=== PATIENT | male | born 1955 | race Caucasian/White ===

== ENCOUNTER 2017-04-30 04:46 | Emergency (ER) | payer BC ==
[~2017-04-30] VITALS: Ht 175.3 cm; Wt 84.8 kg
[~2017-04-30 04:46] MED LIST: CIPR500T PO
[2017-04-30] MEDS ORDERED: IV NORMAL SALINE 1,000ML 1,000 ML IV SCH (05:17)
--- NOTE | 2017-04-30 05:17 | ED.ADGEN ---
Past History Past Medical History: CAD, Diabetes Past Surgical History: Coronary Bypass Surgery Alcohol Use: None Drug Use: None Adult General Chief Complaint Chief Complaint Hematuria and abdominal pain HPI HPI Patient is a C1 year old and male who presents with abdominal pain and hematuria. He states his been going on for about 2 days and is constant in the right side length that radiates into his pelvic area. Currently he states the pain is a 9 out 10 and nothing makes it better or worse. He states that he couldn't sleep tonight and that's why came to the emergency department. He denies any nausea vomiting or diarrhea. States he also has been noticing brown colored urine the same time. He states he tried to have a bowel movement last night but couldn't. He drove himself here. He has had history of kidney stones within several years ago they doesn't really remember the pain or discomfort at that time. He also said triple bypass surgery. Currently does not have a primary care physician. He denies any testicular pain. Review of Systems Review of Systems Constitutional: Denies fever or chills [] Eyes: Denies change in visual acuity, redness, or eye pain [] HENT: Denies nasal congestion or sore throat [] Respiratory: Denies cough or shortness of breath [] Cardiovascular: No additional information not addressed in HPI [] GI: Denies nausea, vomiting, bloody stools or diarrhea, positive for abdominal pain and right flank pain., : Denies dysuria, positive for hematuria [] Musculoskeletal: Denies back pain or joint pain [] Integument: Denies rash or skin lesions [] Neurologic: Denies headache, focal weakness or sensory changes [] Endocrine: Denies polyuria or polydipsia [] Current Medications Current Medications Current Medications Medications (Trade) Dose Ordered Sig/Raj Start Time Stop Time Status Last Admin Dose Admin Ondansetron HCl (Zofran) 4 mg 1X ONCE 04/30/17 06:00 04/30/17 06:01 UNV Sodium Chloride 1,000 ml @ 1,000 mls/hr Q1H 04/30/17 05:17 04/30/17 06:16 UNV 04/30/17 05:17 1,000 MLS/HR Allergies Allergies Allergies Coded Allergies Type Severity Reaction Last Updated Verified codeine Allergy Unknown 11/21/16 Yes Physical Exam Physical Exam Constitutional: Well developed, well nourished, no acute distress, non-toxic appearance. [] HENT: Normocephalic, atraumatic, bilateral external ears normal, oropharynx moist, no oral exudates, nose normal. [] Eyes: PERRLA, EOMI, conjunctiva normal, no discharge. [] Neck: Normal range of motion, no tenderness, supple, no stridor. [] Cardiovascular:Heart rate regular rhythm, no murmur [] Lungs & Thorax: Bilateral breath sounds clear to auscultation [] Abdomen: Bowel sounds normal, soft, tender palpation right and left lower quadrant, no rebound or guarding, tender palpation the right flank., no masses, no pulsatile masses. [] Skin: Warm, dry, no erythema, no rash. [] Back: No tenderness, no CVA tenderness. [] Extremities: No tenderness, no cyanosis, no clubbing, ROM intact, no edema. [] Neurologic: Alert and oriented X 3, normal motor function, normal sensory function, no focal deficits noted. [] Psychologic: Affect normal, judgement normal, mood normal. [] Current Patient Data Vital Signs Vital Signs Date Time Temp Pulse Resp B/P (MAP) Pulse Ox O2 Delivery O2 Flow Rate FiO2 04/30/17 04:50 97.7 74 20 98 Room Air Lab Results Laboratory Tests Test 04/30/17 05:00 04/30/17 05:10 Urine Collection Type Unknown Urine Color Red Urine Clarity Hazy Urine pH 7.0 Urine Specific [place] 1.020 Urine Protein 30 mg/dl (NEG-TRACE) Urine Glucose (UA) Neg mg/dL (NEG) Urine Ketones (Stick) Neg mg/dL (NEG) Urine Blood Large (NEG) Urine Nitrite Neg (NEG) Urine Bilirubin Neg (NEG) Urine Urobilinogen Dipstick 0.2 mg/dL (0.2 mg/dL) Urine Leukocyte Esterase Neg (NEG) Urine RBC >40 /HPF (0-2) Urine WBC Occ /HPF (0-4) Urine Squamous Epithelial Cells None /LPF Urine Bacteria Few /HPF (0-FEW) White Blood Count 12.6 x10^3/uL (4.0-11.0) H Red Blood Count 5.28 x10^6/uL (4.30-5.70) Hemoglobin 15.2 g/dL (13.0-17.5) Hematocrit 45.7 % (39.0-53.0) Mean Corpuscular Volume 87 fL (79-100) Mean Corpuscular Hemoglobin 29 pg (25-35) Mean Corpuscular Hemoglobin Concent 33 g/dL (31-37) Red Cell Distribution Width 15.7 % (11.5-14.5) H Platelet Count 156 x10^3/uL (140-400) Neutrophils (%) (Auto) 72 % (31-73) Lymphocytes (%) (Auto) 17 % (24-48) L Monocytes (%) (Auto) 8 % (0-9) Eosinophils (%) (Auto) 2 % (0-3) Basophils (%) (Auto) 1 % (0-3) Neutrophils # (Auto) 9.0 x10^3uL (1.8-7.7) H Lymphocytes # (Auto) 2.2 x10^3/uL (1.0-4.8) Monocytes # (Auto) 1.0 x10^3/uL (0.0-1.1) Eosinophils # (Auto) 0.2 x10^3/uL (0.0-0.7) Basophils # (Auto) 0.1 x10^3/uL (0.0-0.2) Sodium Level 143 mmol/L (136-145) Potassium Level 4.2 mmol/L (3.5-5.1) Chloride Level 106 mmol/L (98-107) Carbon Dioxide Level 30 mmol/L (21-32) Anion Gap 7 (6-14) Blood Urea Nitrogen 18 mg/dL (8-26) Creatinine 1.5 mg/dL (0.7-1.3) H Estimated GFR (Cockcroft-Gault) 47.6 Glucose Level 125 mg/dL (70-99) H Calcium Level 9.3 mg/dL (8.5-10.1) EKG EKG [] Radiology/Procedures Radiology/Procedures [] Course & Med Decision Making Course & Med Decision Making Pertinent Labs and Imaging studies reviewed. (See chart for details) She presents with what sounds like likely kidney stone. He's had hematuria for 2 days his been constant pain in the pain is in the right flank and goes into his right and left lower quadrants. States nothing makes the pain better or worse. He's had a history of a kidney stone many years ago. On my reading the CT scan shows a likely stone on the right that could be causing the symptoms. Awaiting on final CT scan results. The patient being checked out to , for final disposition. This is stone he likely needs to be discharged with [place] , Flomax, and urology follow-up and a urinary strainer. We also talked about giving him a shot of Toradol. He is currently getting IV fluids and Zofran. She is in stable condition at this time being checked out to . Final Impression Final Impression Abdominal pain Problems: Dragon Disclaimer Dragon Disclaimer This electronic medical record was generated, in whole or in part, using a voice recognition dictation system. МАРИНА ANAYA MD Apr 30, 2017 05:17
[2017-04-30 05:26] LABS: BASO # 0.1 x10^3/uL (0.0-0.2); BASO % 1 % (0-3); EOS # 0.2 x10^3/uL (0.0-0.7); EOS % 2 % (0-3); HEMATOCRIT 45.7 % (39.0-53.0); HEMOGLOBIN 15.2 g/dL (13.0-17.5); LYMPH # 2.2 x10^3/uL (1.0-4.8); LYMPH % 17 % (24-48); MEAN CORPUSCULAR HEMOGLOBIN 29 pg (25-35); MEAN CORPUSCULAR HGB CONC 33 g/dL (31-37); MEAN CORPUSCULAR VOLUME 87 fL (79-100); MONO % 8 % (0-9); NEUT % 72 % (31-73); PLATELET COUNT 156 x10^3/uL (140-400); RED BLOOD COUNT 5.28 x10^6/uL (4.30-5.70); RED CELL DISTRIBUTION WIDTH 15.7 % (11.5-14.5); WHITE BLOOD COUNT 12.6 x10^3/uL (4.0-11.0)
[2017-04-30 05:30] LABS: BACTERIA,URINE FEW /HPF (0-FEW); BILIRUBIN,URINE NEG (NEG); CLARITY,URINE HAZY; COLOR,URINE RED; GLUCOSE,URINE NEG (NEG); NITRITE,URINE NEG (NEG); RBC,URINE >40 /HPF (0-2); UROBILINOGEN,URINE 0.2 mg/dL (0.2 mg/dL); WBC,URINE OCC /HPF (0-4)
[2017-04-30 05:30] LABS: CALCIUM 9.3 mg/dL (8.5-10.1); CREATININE 1.5 mg/dL (0.7-1.3); GFR 47.6; POTASSIUM 4.2 mmol/L (3.5-5.1)
[2017-04-30] MEDS ORDERED: ONDANSETRON PF 4 MG/2 ML VIAL. IV ONE (06:00)
[2017-04-30 06:16] LABS: DIRECT BILIRUBIN 0.1 mg/dL (0.0-0.2); TOTAL BILIRUBIN 0.5 mg/dL (0.2-1.0); TOTAL PROTEIN 7.4 g/dL (6.4-8.2)
--- NOTE | 2017-04-30 06:29 | RAD ---
EXAM: CT ABDOMEN/PELVIS WITHOUT CONTRAST. HISTORY: Right flank pain and hematuria. TECHNIQUE: Computed tomography of the abdomen and pelvis was performed without intravenous contrast. COMPARISON: None. FINDINGS: Lung windows through the visualized portions of the bases reveal mild atelectasis and median sternotomy changes. Bone windows reveal no suspicious lesions. There is mild aortoiliac ectasia. Maximum aortic diameter is 2.7 cm. 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 There are no pathologically enlarged lymph nodes. The appendix is not inflamed. There is no obstruction. The liver, gallbladder, pancreas and spleen are unremarkable without contrast. A low-density nodule in the left adrenal gland is consistent with a benign adenoma and measures 2.2 x 2.0 cm. A right proximal ureteral calculus measures 5 mm. There is mild right pelviectasis with perinephric stranding. Another right distal ureteral calculus measures 3 mm. There is urothelial thickening in the bladder and throughout the left ureter and collecting system. Additional renal calculi measure up to 3 mm bilaterally. The prostate is moderately enlarged at 4.5 cm. IMPRESSION: 1. 2 right ureteral calculi measure 5 mm just distal to the ureteropelvic junction and 3 mm just proximal to the ureterovesical junction. 2. Additional bilateral renal calculi measuring up to 3 mm. 3. Urothelial thickening throughout the bladder and left collecting system. Correlate with urinalysis. 4. 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 *One or more of the following individualized dose reduction techniques were utilized for this examination: 1. Automated exposure control. 2. Adjustment of the mA and/or kV according to patient size. 3. Use of iterative reconstruction technique. Electronically signed by: Rickey Metzger MD (04/30/2017 6:25 AM)
[2017-04-30] MEDS: HYDROmorphone PF 1 MG/ML DISP.SYRIN IV/SQ PRN ×2 (06:30→06:58)
--- NOTE | 2017-04-30 07:08 | PHYS DOC ---
General Chief Complaint: FLANK PAIN Stated Complaint: BLOOD IN URINE X 2 DAYS Time Seen by MD: 05:57 Source: patient, RN/MD, old records Exam Limitations: no limitations Problems: History of Present Illness Initial Comments Patient signed out to me by Dr. Anaya 6 AM shift change. See his documentation for history and other data not contained herein. Patient seen and examined, chart reviewed. 61-year-old male history coronary artery disease and diabetes with several days worsening right flank pain and hematuria this morning. Nauseous on arrival resolved with Zofran, patient drove himself so no narcotic meds and then administered yet. Urinalysis is positive for blood no products of infection creatinine mildly bumped at 1.5 with BUN 18 otherwise reassuring labs. At this point patient states he will get a cab home as his pain is severe and he is requesting stronger pain medications. His vital signs remained stable aside from his blood pressure which was elevated on arrival as patient has not taken his home blood pressure meds and refuses them in the ED. Pressure initially 202/106 improved to 174/104 without treatment. Getting his pain under control should further aid blood pressure control. He continues without chest pain shortness of breath headache focal neuro changes, asymptomatic with his elevated pressures. Allergies: Coded Allergies: codeine (Verified Allergy, Unknown, 11/21/16) Past Medical History Medical History: diabetes, heart disease, kidney stones Surgical History: coronary bypass surgery Social History Smoker: cigarettes Alcohol: none Drugs: none Physical Exam General Appearance: mild distress Ear, Nose, Throat: normal ENT inspection Neck: non-tender, supple Respiratory: normal breath sounds, no respiratory distress Cardiovascular: normal peripheral pulses, regular rate, rhythm Gastrointestinal: non tender, soft Back: no CVA tenderness, no vertebral tenderness Extremities: non-tender, normal inspection 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 PHYSICIAN: МАРИНА ANAYA MD REASON: hematuria PROCEDURE: CT ABDOMEN PELVIS WO CONTRAST EXAM: CT ABDOMEN/PELVIS WITHOUT CONTRAST. HISTORY: Right flank pain and hematuria. TECHNIQUE: Computed tomography of the abdomen and pelvis was performed without intravenous contrast. COMPARISON: None. FINDINGS: Lung windows through the visualized portions of the bases reveal mild atelectasis and median sternotomy changes. Bone windows reveal no suspicious lesions. There is mild aortoiliac ectasia. Maximum aortic diameter is 2.7 cm. 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 There are no pathologically enlarged lymph nodes. The appendix is not inflamed. There is no obstruction. The liver, gallbladder, pancreas and spleen are unremarkable without contrast. A low-density nodule in the left adrenal gland is consistent with a benign adenoma and measures 2.2 x 2.0 cm. A right proximal ureteral calculus measures 5 mm. There is mild right pelviectasis with perinephric stranding. Another right distal ureteral calculus measures 3 mm. There is urothelial thickening in the bladder and throughout the left ureter and collecting system. Additional renal calculi measure up to 3 mm bilaterally. The prostate is moderately enlarged at 4.5 cm. IMPRESSION: 1. 2 right ureteral calculi measure 5 mm just distal to the ureteropelvic junction and 3 mm just proximal to the ureterovesical junction. 2. Additional bilateral renal calculi measuring up to 3 mm. 3. Urothelial thickening throughout the bladder and left collecting system. Correlate with urinalysis. 4. 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 *One or more of the following individualized dose reduction techniques were utilized for this examination: 1. Automated exposure control. 2. Adjustment of the mA and/or kV according to patient size. 3. Use of iterative reconstruction technique. Electronically signed by: Rickey Metzger MD (04/30/2017 6:25 AM) DICTATED AND SIGNED BY: VITO METZGER MD DATE: 04/30/17 0607 CC: МАРИНА ANAYA MD; PCP,NO; BETO WRIGHT DO ~ Pertinent labs urinalysis is grossly positive for blood third no products of infection. BUN 18 creatinine 1.5, white blood cells 12.6 Patient reports dramatic symptom control with Dilaudid IV. I discussed findings with him and stressed the need for urologic evaluation. The 5 mm stone is borderline passable at home for size and I offered patient inpatient admission to with inpatient urologic evaluation. Patient refuses requesting conservative treatment at home. As there is no evidence of infection with his right-sided hydronephrosis this is not unreasonable. I discussed prophylactic antibiotics to prevent infection as well as the need for outpatient urologic evaluation for his kidney stones and likely cystoscopy to rule out tumor. Stressed the need to follow-up with his primary care physician will potentially need further vascular studies or specialty consultation for the femoral aneurysm. I discussed rechecking his kidney function next week with his primary care doctor as well as smoking cessation. I advised him to take his blood pressure meds upon arrival home and to call the ED or return if his blood pressure did not normalize. He expressed agreement and understanding of all these things and said he is without medical insurance gout he will follow-up with urology as an outpatient. I advised him about [facility] and [facility] as possible resources. Departure Time of Disposition: 06:56 Disposition: 01 HOME, SELF-CARE Diagnosis: 2 R ureterolith with obstruction, femoral artery a Patient Instructions: Hypertension, Kidney Stones, [id number], Smoking Cessation Additional Instructions: 1. 2 right ureter kidney stones (5mm, 3mm) with obstruction 2. small right femoral artery aneurysm 3. urothelial thickening 4. bilateral renal stones 5. uncontrolled hypertension 6. acute renal insufficiency Rest today and no driving or operating machinery while under the influence of narcotic pain medications. Aggressive hydration as well as [id number] stool softeners to prevent constipation. Continue home medications. Prescriptions: [place] 10 mg #40, Zofran, cephalexin Stop smoking, seek medical assistance if necessary. You will need to follow up with a urologist regarding the kidney stones as well as the urothelial thickening. As discussed urothelial thickening requires further evaluation by a urologist for possible tumor. Also as discussed we'll send you home with antibiotics to prevent complication of urinary infection with obstruction. Per your request ED staff will provide you information regarding the [facility] and [facility]. Must follow-up with urologist for further evaluation. You may choose to see Dr. Jorge Alberto Hermosillo with the [facility] urology. His office is at [address] [place] [address] [address], [place] [address]. [phone] call today to schedule next available appointment. Follow up with her primary care physician for further evaluation and management of the other medical problems. Return to ED with new or changing symptoms. BETO WRIGHT DO Apr 30, 2017 07:07
[2017-04-30] MEDS ORDERED: CEPH500T PO (07:11)
[2017-04-30] MEDS ORDERED: ONDA4TAB10 SL (07:11)
[2017-04-30] MEDS ORDERED: HYDR-963 PO (07:11)
[2017-04-30] MEDS ORDERED: TAMS0.4C97 PO (07:11)
[2017-04-30 07:15] VITALS: BP 184/100
== END 2017-04-30 07:30 | disposition home or self-care (01) ==
LOC: ER 04:46
DX: N20.1 Calculus of ureter (principal); N36.8 Other specified disorders of urethra; I72.4 Aneurysm of artery of lower extremity; I25.810 Atherosclerosis of coronary artery bypass graft(s) without angina pectoris; E11.9 Type 2 diabetes mellitus without complications; F17.210 Nicotine dependence, cigarettes, uncomplicated; Z87.442 Personal history of urinary calculi; Z88.6 Allergy status to analgesic agent
CPT/HCPCS: 36415; 74176; 80048; 80076; 81001; 83690; 85027; 96361; 96374; 96375; 99285; J1170; J2405; J7030